=== PATIENT | female | born 1955 | race Caucasian/White ===

== ENCOUNTER 2019-06-30 10:28 | Inpatient (IN) ==
[2019-06-30] MEDS ORDERED: 0.9 % Sodium Chloride 1,000 ML IVC ONE (10:54)
[2019-06-30 11:14] LABS: Basophils % 0.1 %; Eosinophils # 0.1 K/mcL (0.0-0.6); Eosinophils % 0.9 %; Hematocrit 31.7 % (35.3-44.9); Hemoglobin 11.2 g/dL (11.5-15.4); Immature Granulocytes % 0.4 % (0-4); Lymphocytes # 1.7 K/mcL (0.6-4.6); Lymphocytes % 18.7 %; Mean Corpuscular HGB Conc 35.3 g/dL (31.6-35.5); Mean Corpuscular Hemoglobin 33.9 pg (28.0-33.3); Mean Corpuscular Volume 96.1 fL (83.0-100.0); Mean Platelet Volume 9.2 fL (9.4-12.4); Monocytes # 0.6 K/mcL (0.0-1.3); Monocytes % 6.9 %; Neutrophils # 6.6 K/mcL (1.6-8.9); Platelet Count 388 K/mcL (140-400); Red Cell Distribution Width 19.2 % (11.5-14.5)
[2019-06-30 11:27] LABS: INR 1.1
[2019-06-30 11:30] LABS: Activated Partial Thrombo Time 28.3 Seconds (26.0-36.0)
[2019-06-30 11:34] LABS: BUN/Creatinine Ratio 17 (6-26); Blood Urea Nitrogen 8 mg/dL (8-23); Calcium 8.5 mg/dL (8.6-10.3); Carbon Dioxide 29 mEq/L (23-29); Chloride 95 mEq/L (98-107); Glucose 78 mg/dL (70-105); Osmolality,Calculated 273 (280-300); Potassium 3.1 mEq/L (3.5-5.1); Sodium 133 mEq/L (136-145); eGFR For African Americans > 60 (> 60); eGFR For Non-African Americans > 60 (> 60)
[2019-06-30 11:35] LABS: Troponin I < 0.03 ng/mL (< 0.04)
[2019-06-30] MEDS ORDERED: Isovue-370 500 ML BOTTLE IVP ONE (12:49)
[2019-06-30] MEDS ORDERED: *HR* HYDROmorphone (PF) 1 MG/ML SYRINGE IVP ONE (13:44)
[2019-06-30] MEDS ORDERED: Azithromycin 500 MG in 0.9 % Sodium Chloride 250 ML IVPB ONE (15:42)
[2019-06-30] MEDS ORDERED: Piperacillin/Tazobactam 3.375 GM in 0.9 % Sodium Chloride Mini Bag 100 ML IVPB ONE (15:42)
[2019-06-30] MEDS ORDERED: Ipratropium/Albuterol Neb 3 ML IH ONE (15:57)
[2019-06-30] MEDS ORDERED: Naloxone 0.4 MG/ML INJ IVP PRN (16:27)
[2019-06-30] MEDS: *HR* Heparin 5,000 UNIT/ML VIAL SQ SCH (21:07)
[2019-06-30] MEDS ORDERED: Acetaminophen IV 500 MG/50 ML INFUS..BTL IVPB ONE (21:58)
[2019-06-30] MEDS: Ipratropium/Albuterol Neb 3 ML IH PRN (22:09)
[2019-07-01 01:12] LABS: Basophils % 0.1 %; Eosinophils # 0.1 K/mcL (0.0-0.6); Eosinophils % 0.9 %; Hemoglobin 9.7 g/dL (11.5-15.4); Immature Granulocytes % 0.2 % (0-4); Lymphocytes # 1.3 K/mcL (0.6-4.6); Lymphocytes % 14.7 %; Mean Corpuscular HGB Conc 34.6 g/dL (31.6-35.5); Mean Corpuscular Hemoglobin 33.6 pg (28.0-33.3); Mean Corpuscular Volume 96.9 fL (83.0-100.0); Mean Platelet Volume 9.2 fL (9.4-12.4); Monocytes # 0.6 K/mcL (0.0-1.3); Monocytes % 6.2 %; Neutrophils # 6.9 K/mcL (1.6-8.9); Platelet Count 329 K/mcL (140-400); Red Blood Count 2.89 M/mcL (3.82-4.97); Red Cell Distribution Width 17.9 % (11.5-14.5); Segmented Neutrophils % 77.9 %; White Blood Count 8.8 K/mcL (4.3-11.1)
[2019-07-01 01:31] LABS: BUN/Creatinine Ratio 14 (6-26); Blood Urea Nitrogen 5 mg/dL (8-23); Calcium 8.1 mg/dL (8.6-10.3); Carbon Dioxide 30 mEq/L (23-29); Chloride 98 mEq/L (98-107); Glucose 95 mg/dL (70-105); Osmolality,Calculated 279 (280-300); Sodium 136 mEq/L (136-145); eGFR For African Americans > 60 (> 60); eGFR For Non-African Americans > 60 (> 60)
[2019-07-01] MEDS: *HR* Heparin 5,000 UNIT/ML VIAL SQ SCH ×3 (05:26→20:13)
[2019-07-01] MEDS ORDERED: *HR* OxyCODONE/APAP 5/325 TABLET PO ONE (05:46)
[2019-07-01] MEDS ORDERED: Piperacillin/Tazobactam 3.375 GM in 0.9 % Sodium Chloride Mini Bag 100 ML IVPB SCH ×2 (06:00→13:45)
[2019-07-01] MEDS: Ipratropium/Albuterol Neb 3 ML IH PRN ×2 (10:21→21:17)
[2019-07-01] MEDS ORDERED: hydrOXYzine pamoate 25 MG CAPSULE PO PRN (10:40)
[2019-07-01] MEDS ORDERED: tiZANidine 4 MG TABLET PO PRN (10:40)
[2019-07-01] MEDS: *HR* OxyCODONE/APAP 10/325 TABLET PO PRN ×2 (12:20→19:21)
[2019-07-01] MEDS: Simethicone 80 MG TAB.CHEW PO SCH ×3 (15:17→20:13)
[2019-07-01] MEDS: Piperacillin/Tazobactam 3.375 GM in 0.9 % Sodium Chloride Mini Bag 100 ML IVPB SCH (15:27)
[2019-07-01] MEDS: Gabapentin 400 MG CAPSULE PO SCH ×2 (15:27→20:12)
[2019-07-01] MEDS: Budesonide/Formoterol 160/4.5 1 PUFF INH IH SCH (20:22)
[2019-07-01] MEDS ORDERED: NON-FORMULARY MEDICATION 1 EACH EACH (Oxygen 2 L) NS SCH (21:00)
[2019-07-02] MEDS: Piperacillin/Tazobactam 3.375 GM in 0.9 % Sodium Chloride Mini Bag 100 ML IVPB SCH ×2 (00:28→08:31)
[2019-07-02] MEDS: *HR* Heparin 5,000 UNIT/ML VIAL SQ SCH (06:14)
[2019-07-02] MEDS: *HR* OxyCODONE/APAP 10/325 TABLET PO PRN (06:17)
[2019-07-02 06:35] VITALS: BP 108/63
[2019-07-02 07:01] LABS: Basophils % 0.2 %; Eosinophils # 0.1 K/mcL (0.0-0.6); Eosinophils % 1.7 %; Hematocrit 28.9 % (35.3-44.9); Hemoglobin 10.2 g/dL (11.5-15.4); Immature Granulocytes % 0.3 % (0-4); Lymphocytes # 1.3 K/mcL (0.6-4.6); Lymphocytes % 19.1 %; Mean Corpuscular HGB Conc 35.3 g/dL (31.6-35.5); Mean Corpuscular Hemoglobin 33.6 pg (28.0-33.3); Mean Corpuscular Volume 95.1 fL (83.0-100.0); Mean Platelet Volume 9.2 fL (9.4-12.4); Monocytes # 0.5 K/mcL (0.0-1.3); Monocytes % 7.6 %; Neutrophils # 4.7 K/mcL (1.6-8.9); Platelet Count 373 K/mcL (140-400); Red Blood Count 3.04 M/mcL (3.82-4.97); Segmented Neutrophils % 71.1 %; White Blood Count 6.6 K/mcL (4.3-11.1)
[2019-07-02 07:20] LABS: BUN/Creatinine Ratio 17 (6-26); Blood Urea Nitrogen 7 mg/dL (8-23); Calcium 8.2 mg/dL (8.6-10.3); Carbon Dioxide 33 mEq/L (23-29); Chloride 96 mEq/L (98-107); Glucose 87 mg/dL (70-105); Osmolality,Calculated 281 (280-300); Potassium 3.2 mEq/L (3.5-5.1); Sodium 137 mEq/L (136-145); eGFR For African Americans > 60 (> 60); eGFR For Non-African Americans > 60 (> 60)
[2019-07-02] MEDS: Gabapentin 400 MG CAPSULE PO SCH (08:30)
[2019-07-02] MEDS: Simethicone 80 MG TAB.CHEW PO SCH (08:30)
[2019-07-02] MEDS ORDERED: Lubiprostone [Amitiza] 24 MCG PO SCH (09:00)
[2019-07-02] MEDS ORDERED: Roflumilast [Daliresp] 500 MCG PO SCH (09:00)
[2019-07-02] MEDS ORDERED: Aspirin 81 MG TAB.CHEW PO SCH (09:00)
[2019-07-02] MEDS ORDERED: Cholecalciferol (D-3) 1,000 UNIT (25MCG) TABLET PO SCH (09:00)
[2019-07-02] MEDS ORDERED: amLODIPine 5 MG TABLET PO SCH (09:00)
[2019-07-02] MEDS ORDERED: Loratadine 10 MG TABLET PO SCH (09:00)
[2019-07-02] MEDS ORDERED: Tiotropium 18 MCG inhalation IH SCH (10:00)
[2019-07-02] MEDS: Budesonide/Formoterol 160/4.5 1 PUFF INH IH SCH (10:53)
== END 2019-07-02 13:16 | disposition home or self-care (01) | DRG 194 ==
LOC: 3BNU 10:28 → EMEROOARM 10:28 → SUATTDRO 16:37 → OBSVTOIN 16:37 → 3BNU 17:20
PROVIDERS: ADMIT Internal Medicine; ATTEND Internal Medicine

== ENCOUNTER 2019-10-05 17:15 | Observation (INO) ==
[2019-10-05] MEDS ORDERED: Isovue-370 500 ML BOTTLE IVP ONE (17:43)
[2019-10-05 18:08] LABS: Basophils % 0.5 %; Eosinophils # 0.2 K/mcL (0.0-0.6); Eosinophils % 2.6 %; Hematocrit 43.3 % (35.3-44.9); Hemoglobin 14.7 g/dL (11.5-15.4); Immature Granulocytes % 0.2 % (0-4); Lymphocytes % 33.6 %; Mean Corpuscular HGB Conc 33.9 g/dL (31.6-35.5); Mean Corpuscular Hemoglobin 32.7 pg (28.0-33.3); Mean Corpuscular Volume 96.4 fL (83.0-100.0); Mean Platelet Volume 9.6 fL (9.4-12.4); Monocytes # 0.5 K/mcL (0.0-1.3); Monocytes % 7.6 %; Neutrophils # 3.4 K/mcL (1.6-8.9); Platelet Count 285 K/mcL (140-400); Red Blood Count 4.49 M/mcL (3.82-4.97); Red Cell Distribution Width 14.7 % (11.5-14.5); Segmented Neutrophils % 55.5 %; White Blood Count 6.1 K/mcL (4.3-11.1)
[2019-10-05 18:25] LABS: BUN/Creatinine Ratio 18 (6-26); Blood Urea Nitrogen 10 mg/dL (8-23); Calcium 9.3 mg/dL (8.6-10.3); Carbon Dioxide 29 mEq/L (23-29); Chloride 104 mEq/L (98-107); Glucose 105 mg/dL (70-105); Osmolality,Calculated 289 (280-300); Potassium 3.6 mEq/L (3.5-5.1); Sodium 140 mEq/L (136-145); Troponin I < 0.03 ng/mL (< 0.04); eGFR For African Americans > 60 (> 60); eGFR For Non-African Americans > 60 (> 60)
[2019-10-05] MEDS ORDERED: Naloxone 0.4 MG/ML INJ IVP PRN (20:23)
[2019-10-05] MEDS ORDERED: *HR* Metoprolol 5 MG/5 ML VIAL IVP PRN (20:26)
[2019-10-05] MEDS ORDERED: Levalbuterol Neb 1.25 MG/3 ML IH PRN (20:28)
[2019-10-05 20:35] LABS: Prothrombin Time 11.8 Seconds (9.4-12.1)
[2019-10-05] MEDS: 0.9 % Sodium Chloride 1,000 ML IVC SCH (20:46)
[2019-10-05] MEDS ORDERED: tiZANidine 4 MG TABLET PO PRN (21:04)
[2019-10-05] MEDS ORDERED: NON-FORMULARY MEDICATION 1 EACH EACH (Fluticasone/Umeclidin/Vilanter [Trelegy Ellipta 100- IH PRN (21:04)
[2019-10-05] MEDS: predniSONE 20 MG TABLET PO SCH (21:34)
[2019-10-05] MEDS: Levalbuterol Neb 1.25 MG/3 ML IH SCH ×2 (22:24→23:10)
[2019-10-06] MEDS: *HR* OxyCODONE/APAP 10/325 TABLET PO PRN ×3 (00:29→18:15)
[2019-10-06] MEDS: Levalbuterol Neb 1.25 MG/3 ML IH SCH ×5 (03:16→20:26)
[2019-10-06 03:53] LABS: Basophils % 0.1 %; Eosinophils % 0.1 %; Hematocrit 41.8 % (35.3-44.9); Hemoglobin 13.7 g/dL (11.5-15.4); Immature Granulocytes % 0.1 % (0-4); Lymphocytes % 14.8 %; Mean Corpuscular HGB Conc 32.8 g/dL (31.6-35.5); Mean Corpuscular Hemoglobin 33.1 pg (28.0-33.3); Mean Platelet Volume 9.8 fL (9.4-12.4); Monocytes # 0.1 K/mcL (0.0-1.3); Monocytes % 0.9 %; Neutrophils # 5.7 K/mcL (1.6-8.9); Platelet Count 255 K/mcL (140-400); Red Blood Count 4.14 M/mcL (3.82-4.97); Red Cell Distribution Width 14.4 % (11.5-14.5); White Blood Count 6.8 K/mcL (4.3-11.1)
[2019-10-06 04:13] LABS: BUN/Creatinine Ratio 15 (6-26); Blood Urea Nitrogen 9 mg/dL (8-23); Calcium 9.2 mg/dL (8.6-10.3); Carbon Dioxide 28 mEq/L (23-29); Chloride 105 mEq/L (98-107); Glucose 146 mg/dL (70-105); Osmolality,Calculated 293 (280-300); Potassium 4.2 mEq/L (3.5-5.1); Sodium 141 mEq/L (136-145); eGFR For African Americans > 60 (> 60); eGFR For Non-African Americans > 60 (> 60)
[2019-10-06] MEDS: *HR* OxyCODONE Immed Rel 5 MG TABLET PO PRN ×3 (05:29→16:14)
[2019-10-06] MEDS: Pyridoxine (B-6) 50 MG TABLET PO SCH (08:02)
[2019-10-06] MEDS: Simethicone 80 MG TAB.CHEW PO SCH ×4 (08:04→20:39)
[2019-10-06] MEDS: Loratadine 10 MG TABLET PO SCH (08:04)
[2019-10-06] MEDS: Cholecalciferol (D-3) 1,000 UNIT (25MCG) TABLET PO SCH (08:04)
[2019-10-06] MEDS: Gabapentin 400 MG CAPSULE PO SCH ×3 (08:04→20:39)
[2019-10-06] MEDS: predniSONE 20 MG TABLET PO SCH (08:04)
[2019-10-06] MEDS: 0.9 % Sodium Chloride 1,000 ML IVC SCH (08:13)
[2019-10-06] MEDS ORDERED: LUBIPROSTONE 24 MCG PO SCH (09:00)
[2019-10-06] MEDS ORDERED: DALIRESP 500 MCG PO SCH (09:00)
[2019-10-06] MEDS ORDERED: AMITIZA 24MCG PO SCH (09:00)
[2019-10-06] MEDS ORDERED: Budesonide/Formoterol 160/4.5 1 PUFF INH IH SCH (10:00)
[2019-10-06] MEDS ORDERED: Acetaminophen IV 1,000 MG/100 ML INFUS..BTL IVPB ONE (11:00)
[2019-10-06] MEDS ORDERED: Albuterol 2.5 MG/3 ML NEBULIZER IH ONE (11:00)
[2019-10-06] MEDS ORDERED: Ondansetron 4 MG/2 ML VIAL ONE (11:08)
[2019-10-06] MEDS ORDERED: Lidocaine -MPF 2% 2 ML VIAL ONE (11:08)
[2019-10-06] MEDS ORDERED: *HR* FentaNYL (PF) 100 MCG/2 ML VIAL ONE (11:08)
[2019-10-06] MEDS ORDERED: Dexamethasone 4 MG/ML VIAL ONE (11:08)
[2019-10-06] MEDS ORDERED: *HR* Propofol 200 MG/20 ML VIAL IVP ONE ×2 (11:09→11:10)
[2019-10-06] MEDS ORDERED: *HR* Midazolam HCl 2 MG/2 ML VIAL ONE (11:09)
[2019-10-06] MEDS ORDERED: Lidocaine -MPF 4% 5 ML AMPUL ONE (11:14)
[2019-10-06] MEDS ORDERED: *HR* EPINEPHrine 1 MG/10 ML SYRINGE INTRATRACH PRN (11:51)
[2019-10-06] MEDS: Azithromycin 250 MG TABLET PO SCH (14:10)
[2019-10-06] MEDS: Budesonide/Formoterol 160/4.5 1 PUFF INH IH SCH (20:28)
[2019-10-07] MEDS: Levalbuterol Neb 1.25 MG/3 ML IH SCH ×6 (00:13→19:40)
[2019-10-07] MEDS: *HR* OxyCODONE/APAP 10/325 TABLET PO PRN ×3 (01:13→18:00)
[2019-10-07] MEDS: *HR* OxyCODONE Immed Rel 5 MG TABLET PO PRN ×3 (05:36→20:00)
[2019-10-07] MEDS ORDERED: Ondansetron ODT 4 MG TAB.RAPDIS PO PRN (07:41)
[2019-10-07] MEDS: Budesonide/Formoterol 160/4.5 1 PUFF INH IH SCH ×2 (07:49→19:43)
[2019-10-07] MEDS: Azithromycin 250 MG TABLET PO SCH (09:20)
[2019-10-07] MEDS: Simethicone 80 MG TAB.CHEW PO SCH ×4 (09:21→20:00)
[2019-10-07] MEDS: Gabapentin 400 MG CAPSULE PO SCH ×3 (09:21→20:00)
[2019-10-07] MEDS: Loratadine 10 MG TABLET PO SCH (09:21)
[2019-10-07] MEDS: Pyridoxine (B-6) 50 MG TABLET PO SCH (09:22)
[2019-10-07] MEDS: Cholecalciferol (D-3) 1,000 UNIT (25MCG) TABLET PO SCH (09:22)
[2019-10-07] MEDS: methylPREDNISolone 125 MG/2 ML VIAL IVP SCH ×2 (09:26→18:00)
[2019-10-07] MEDS: 0.9 % Sodium Chloride 1,000 ML IVC SCH (19:26)
[2019-10-08] MEDS: Levalbuterol Neb 1.25 MG/3 ML IH SCH ×3 (00:09→07:26)
[2019-10-08] MEDS: *HR* OxyCODONE/APAP 10/325 TABLET PO PRN ×2 (00:11→08:34)
[2019-10-08] MEDS: methylPREDNISolone 125 MG/2 ML VIAL IVP SCH (05:46)
[2019-10-08] MEDS: *HR* OxyCODONE Immed Rel 5 MG TABLET PO PRN (05:47)
[2019-10-08 06:43] LABS: Basophils % 0.2 %; Hematocrit 36.9 % (35.3-44.9); Hemoglobin 12.6 g/dL (11.5-15.4); Immature Granulocytes % 0.5 % (0-4); Lymphocytes # 1.7 K/mcL (0.6-4.6); Lymphocytes % 26.8 %; Mean Corpuscular HGB Conc 34.1 g/dL (31.6-35.5); Mean Corpuscular Hemoglobin 32.9 pg (28.0-33.3); Mean Corpuscular Volume 96.3 fL (83.0-100.0); Mean Platelet Volume 9.9 fL (9.4-12.4); Monocytes # 0.4 K/mcL (0.0-1.3); Monocytes % 5.8 %; Neutrophils # 4.3 K/mcL (1.6-8.9); Platelet Count 233 K/mcL (140-400); Red Blood Count 3.83 M/mcL (3.82-4.97); Red Cell Distribution Width 14.6 % (11.5-14.5); Segmented Neutrophils % 66.7 %; White Blood Count 6.4 K/mcL (4.3-11.1)
[2019-10-08 07:06] LABS: BUN/Creatinine Ratio 33 (6-26); Blood Urea Nitrogen 17 mg/dL (8-23); Calcium 9.3 mg/dL (8.6-10.3); Carbon Dioxide 29 mEq/L (23-29); Chloride 104 mEq/L (98-107); Glucose 115 mg/dL (70-105); Osmolality,Calculated 292 (280-300); Potassium 3.9 mEq/L (3.5-5.1); Sodium 140 mEq/L (136-145); eGFR For African Americans > 60 (> 60); eGFR For Non-African Americans > 60 (> 60)
[2019-10-08 07:10] VITALS: BP 131/72
[2019-10-08] MEDS: Budesonide/Formoterol 160/4.5 1 PUFF INH IH SCH (07:27)
[2019-10-08] MEDS: Cholecalciferol (D-3) 1,000 UNIT (25MCG) TABLET PO SCH (08:34)
[2019-10-08] MEDS: Loratadine 10 MG TABLET PO SCH (08:34)
[2019-10-08] MEDS: Azithromycin 250 MG TABLET PO SCH (08:34)
[2019-10-08] MEDS: Gabapentin 400 MG CAPSULE PO SCH (08:34)
[2019-10-08] MEDS: Simethicone 80 MG TAB.CHEW PO SCH (08:34)
[2019-10-08] MEDS: Pyridoxine (B-6) 50 MG TABLET PO SCH (08:35)
[2019-10-09 04:49] LABS: Influenza A PCR Body Fluid NOT DETECTED; Influenza B PCR Body Fluid NOT DETECTED; RVP Body Fluid Source BAL
[2019-10-09 07:55] LABS: Influenza A PCR Body Fluid NOT DETECTED; Influenza B PCR Body Fluid NOT DETECTED; RVP Body Fluid Source BAL
[2019-10-09 08:00] LABS: RSV PCR Body Fluid NOT DETECTED
== END 2019-10-08 11:18 | disposition home or self-care (01) ==
LOC: EMEROOARM 17:15 → 3ANU 17:15 → 2ANU 10-06 14:47
PROVIDERS: ADMIT Family Medicine; ATTEND Family Medicine

== ENCOUNTER 2020-03-19 23:46 | Observation (INO) ==
[2020-03-20] MEDS ORDERED: Isovue-370 500 ML BOTTLE IVP ONE (00:52)
[2020-03-20 01:23] LABS: Basophils % 0.3 %; Eosinophils # 0.4 K/mcL (0.0-0.6); Eosinophils % 5.7 %; Hematocrit 42.5 % (35.3-44.9); Hemoglobin 14.1 g/dL (11.5-15.4); Immature Granulocytes % 0.1 % (0-4); Lymphocytes % 14.1 %; Mean Corpuscular HGB Conc 33.2 g/dL (31.6-35.5); Mean Corpuscular Volume 96.6 fL (83.0-100.0); Monocytes # 0.5 K/mcL (0.0-1.3); Monocytes % 7.9 %; Neutrophils # 4.9 K/mcL (1.6-8.9); Platelet Count 314 K/mcL (140-400); Red Cell Distribution Width 12.8 % (11.5-14.5); Segmented Neutrophils % 71.9 %; White Blood Count 6.8 K/mcL (4.3-11.1)
[2020-03-20 01:24] LABS: Prothrombin Time 11.7 Seconds (9.4-12.1)
[2020-03-20 01:26] LABS: Activated Partial Thrombo Time 33.4 Seconds (26.0-36.0)
[2020-03-20 01:31] LABS: Alanine Aminotransferase 17 Units/L (7-52); Albumin 3.4 g/dL (3.5-5.7); Albumin/Globulin Ratio 1.1 (1.1-2.2); Alkaline Phosphatase 126 Units/L (34-104); Aspartate Amino Transferase 20 Units/L (13-39); BUN/Creatinine Ratio 17 (6-26); Bilirubin,Direct 0.2 mg/dL (0.0-0.2); Bilirubin,Indirect 0.1 mg/dL (0.0-1.0); Bilirubin,Total 0.3 mg/dL (0.3-1.0); Blood Urea Nitrogen 10 mg/dL (8-23); Carbon Dioxide 27 mEq/L (23-29); Chloride 103 mEq/L (98-107); Globulin 3.1 g/dL (2.4-3.5); Glucose 100 mg/dL (70-105); Osmolality,Calculated 283 (280-300); Potassium 3.6 mEq/L (3.5-5.1); Sodium 137 mEq/L (136-145); Total Protein 6.5 g/dL (6.4-8.9); Troponin I < 0.03 ng/mL (< 0.04); eGFR For African Americans > 60 (> 60); eGFR For Non-African Americans > 60 (> 60)
[2020-03-20 03:11] LABS: Bilirubin,Urine Negative (Negative); Blood,Urine Small (Negative); Clarity,Urine Clear (Clear); Color,Urine Light-Yellow (Yellow); Glucose,Urine (UA) Normal (Normal); Ketones,Urine Negative (Negative); Leukocyte Esterase,Urine Negative (Negative); Mucus,Urine Few per lpf (None-Few); Nitrite,Urine Negative (Negative); PH,Urine 6.5 pH Units (5.0-8.0); Protein,Urine Trace mg/dL (Neg-Trace); Specific Gravity,Urine 1.009 (1.010-1.025); Squamous Epithelial Cell,Urine Few per hpf (None-Few); Urobilinogen,Urine Normal (Normal); WBC,Urine 0-3 per hpf (0-3)
[2020-03-20] MEDS ORDERED: Albuterol 2.5 MG/3 ML NEBULIZER IH ONE (04:12)
[2020-03-20] MEDS ORDERED: Naloxone 0.4 MG/ML INJ IVP PRN (06:54)
[2020-03-20] MEDS: Albuterol 2.5 MG/3 ML NEBULIZER IH PRN ×2 (08:19→13:01)
[2020-03-20] MEDS: Levalbuterol Neb 0.63 MG/3 ML IH SCH ×3 (10:50→22:17)
[2020-03-20] MEDS ORDERED: Lidocaine -MPF 4% 5 ML AMPUL ONE (11:33)
[2020-03-20] MEDS ORDERED: Dexamethasone 4 MG/ML VIAL ONE (11:33)
[2020-03-20] MEDS ORDERED: Lidocaine -MPF 2% 2 ML VIAL ONE (11:33)
[2020-03-20] MEDS ORDERED: Ondansetron 4 MG/2 ML VIAL ONE (11:33)
[2020-03-20] MEDS: predniSONE 20 MG TABLET PO SCH (15:49)
[2020-03-20] MEDS ORDERED: Acetaminophen 325 MG TABLET PO PRN (16:11)
[2020-03-20] MEDS ORDERED: tiZANidine 4 MG TABLET PO PRN (16:13)
[2020-03-20] MEDS ORDERED: *HR* OxyCODONE/APAP 10/325 TABLET PO PRN (16:13)
[2020-03-20] MEDS: Doxycycline 100 MG CAPSULE PO SCH (16:40)
[2020-03-20] MEDS: Acetaminophen 325 MG TABLET PO PRN (16:40)
[2020-03-20] MEDS: Gabapentin 300 MG CAPSULE PO SCH (16:41)
[2020-03-20] MEDS ORDERED: Doxycycline 100 MG in 0.9 % Sodium Chloride Mini Bag 100 ML IVPB SCH (18:00)
[2020-03-20 18:47] LABS: Appearance of Body Fluid Cloudy (Clear); Volume of Body Fluid 15 mL
[2020-03-20 18:55] LABS: Appearance of Body Fluid Hazy (Clear); Volume of Body Fluid 15 mL
[2020-03-20] MEDS ORDERED: Gabapentin 300 MG CAPSULE PO SCH (21:00)
[2020-03-21] MEDS: Acetaminophen 325 MG TABLET PO PRN (00:20)
[2020-03-21] MEDS: Levalbuterol Neb 0.63 MG/3 ML IH SCH ×2 (03:20→09:20)
[2020-03-21] MEDS: Doxycycline 100 MG CAPSULE PO SCH (05:03)
[2020-03-21 07:12] VITALS: BP 119/76
[2020-03-21] MEDS ORDERED: Loratadine 10 MG TABLET PO SCH (09:00)
[2020-03-21] MEDS: Gabapentin 300 MG CAPSULE PO SCH (10:54)
[2020-03-21] MEDS: predniSONE 20 MG TABLET PO SCH (10:54)
== END 2020-03-21 12:20 | disposition home or self-care (01) ==
LOC: 2ANU 23:46 → EMEROOARM 23:46 → SUATTDRO 03-20 08:36 → 2ANU 03-20 09:30
PROVIDERS: ADMIT Internal Medicine; ATTEND Internal Medicine
PROC: ENDOBRF (2020-03-20 12:10)

== ENCOUNTER 2020-05-17 18:55 | Inpatient (IN) ==
[2020-05-17] MEDS ORDERED: methylPREDNISolone 125 MG/2 ML VIAL IVP ONE (19:19)
[2020-05-17] MEDS ORDERED: Albuterol 2.5 MG/3 ML NEBULIZER IH ONE (19:21)
[2020-05-17 19:31] LABS: Hematocrit 48.3 % (35.3-44.9); Hemoglobin 15.2 g/dL (11.5-15.4); Mean Corpuscular HGB Conc 31.5 g/dL (31.6-35.5); Mean Corpuscular Hemoglobin 30.4 pg (28.0-33.3); Mean Corpuscular Volume 96.6 fL (83.0-100.0); Mean Platelet Volume 9.7 fL (9.4-12.4); Nucleated Red Blood Cells 0.1 /100 WBC (0); Platelet Count 267 K/mcL (140-400); Red Cell Distribution Width 13.9 % (11.5-14.5); White Blood Count 19.9 K/mcL (4.3-11.1)
[2020-05-17 19:35] LABS: VBG HCO3 32 mEq/L (21-27); VBG PCO2 58 mmHg (41-51); VBG PH 7.35 pH Units (7.32-7.42); VBG PO2 41 mmHg (25-50)
[2020-05-17 19:39] LABS: INR 1.1; Prothrombin Time 12.4 Seconds (9.4-12.1)
[2020-05-17 19:41] LABS: Activated Partial Thrombo Time 32.2 Seconds (26.0-36.0)
[2020-05-17 19:50] LABS: Alanine Aminotransferase 14 Units/L (7-52); Albumin 3.5 g/dL (3.5-5.7); Alkaline Phosphatase 144 Units/L (34-104); Aspartate Amino Transferase 16 Units/L (13-39); BUN/Creatinine Ratio 16 (6-26); Bilirubin,Indirect 0.3 mg/dL (0.0-1.0); Bilirubin,Total 0.3 mg/dL (0.3-1.0); Blood Urea Nitrogen 9 mg/dL (8-23); Calcium 9.3 mg/dL (8.6-10.3); Carbon Dioxide 28 mEq/L (23-29); Chloride 98 mEq/L (98-107); Globulin 3.5 g/dL (2.4-3.5); Glucose 108 mg/dL (70-105); Osmolality,Calculated 281 (280-300); Sodium 136 mEq/L (136-145); eGFR For African Americans > 60 (> 60); eGFR For Non-African Americans > 60 (> 60)
[2020-05-17 20:07] LABS: Troponin I 0.08 ng/mL (< 0.04)
[2020-05-17 20:16] LABS: Eosinophils # 0.2 K/mcL (0.0-0.6); Lymphocytes # 1.4 K/mcL (0.6-4.6); Monocytes # 1.4 K/mcL (0.0-1.3); Neutrophils # 16.9 K/mcL (1.6-8.9)
[2020-05-17 20:17] LABS: Platelet Estimate Normal (Normal); Toxic Vacuolation Present (Not Present)
[2020-05-17] MEDS ORDERED: *HR* OxyCODONE/APAP 10/325 TABLET PO STA (20:19)
[2020-05-17] MEDS ORDERED: Piperacillin/Tazobactam 3.375 GM in 0.9 % Sodium Chloride Mini Bag 100 ML IVPB ONE (20:30)
[2020-05-17] MEDS ORDERED: Vancomycin 1,500 MG/265 ML IV.SOLN IVPB ONE (20:30)
[2020-05-17] MEDS ORDERED: 0.9 % Sodium Chloride 1,000 ML IVC ONE (20:30)
[2020-05-17] MEDS ORDERED: Isovue-370 500 ML BOTTLE IVP ONE ×2 (21:39→22:55)
[2020-05-17] MEDS ORDERED: Acetaminophen 325 MG TABLET PO PRN (22:04)
[2020-05-17] MEDS ORDERED: Naloxone 0.4 MG/ML INJ IVP PRN (22:04)
[2020-05-17] MEDS ORDERED: Ondansetron 4 MG/2 ML VIAL IVP PRN (22:04)
[2020-05-17 22:11] LABS: Adenovirus Not Detected (Not Detect); Coronavirus 229E Not Detected (Not Detect); Coronavirus HKU1 Not Detected (Not Detect); Coronavirus NL63 Not Detected (Not Detect); Coronavirus OC43 Not Detected (Not Detect); Human Metapneumovirus Not Detected (Not Detect); Human Rhinovirus/Enterovirus Not Detected (Not Detect); Influenza A Subtype 2009 H1 Not Detected (Not Detect); Influenza B Not Detected (Not Detect); Parainfluenza Virus 1 Not Detected (Not Detect); Parainfluenza Virus 2 Not Detected (Not Detect); Parainfluenza Virus 3 Not Detected (Not Detect); SARS-CoV-2 Not Detected (Not Detect)
[2020-05-17 22:12] LABS: Bordetella Pertussis Not Detected (Not Detect); Chlamydophila pneumoniae Not Detected (Not Detect); Mycoplasma pneumoniae Not Detected (Not Detect); Parainfluenza Virus 4 Not Detected (Not Detect); Respiratory Syncytial Virus Not Detected (Not Detect)
[2020-05-17] MEDS: Levalbuterol Neb 1.25 MG/3 ML IH SCH (23:11)
[2020-05-17] MEDS: Ipratropium Neb 0.5 MG NEBULIZER IH SCH (23:11)
[2020-05-18 01:01] LABS: Basophils # 0.1 K/mcL (0.0-0.2); Basophils % 0.6 %; Eosinophils % 0.1 %; Hematocrit 43.6 % (35.3-44.9); Hemoglobin 13.8 g/dL (11.5-15.4); Immature Granulocytes % 4.5 % (0-4); Lymphocytes # 0.4 K/mcL (0.6-4.6); Lymphocytes % 1.6 %; Mean Corpuscular HGB Conc 31.7 g/dL (31.6-35.5); Mean Corpuscular Hemoglobin 31.2 pg (28.0-33.3); Mean Corpuscular Volume 98.6 fL (83.0-100.0); Mean Platelet Volume 9.9 fL (9.4-12.4); Monocytes # 0.3 K/mcL (0.0-1.3); Monocytes % 1.4 %; Neutrophils # 21.2 K/mcL (1.6-8.9); Platelet Count 224 K/mcL (140-400); Red Blood Count 4.42 M/mcL (3.82-4.97); Red Cell Distribution Width 13.9 % (11.5-14.5); Segmented Neutrophils % 91.8 %; White Blood Count 23.1 K/mcL (4.3-11.1)
[2020-05-18 01:18] LABS: BUN/Creatinine Ratio 14 (6-26); Blood Urea Nitrogen 8 mg/dL (8-23); Calcium 8.6 mg/dL (8.6-10.3); Carbon Dioxide 29 mEq/L (23-29); Chloride 99 mEq/L (98-107); Glucose 168 mg/dL (70-105); Magnesium 1.5 mg/dL (1.6-2.6); Osmolality,Calculated 284 (280-300); Phosphorous 4.7 mg/dL (2.7-4.5); Potassium 4.4 mEq/L (3.5-5.1); Sodium 136 mEq/L (136-145); eGFR For African Americans > 60 (> 60); eGFR For Non-African Americans > 60 (> 60)
[2020-05-18] MEDS ORDERED: Nicotine 2 MG GUM BC PRN (01:23)
[2020-05-18] MEDS ORDERED: Perflutren Lipid Microsphere 1.3 ML in 0.9 % Sodium Chloride 8.7 ML IVP PRN (01:23)
[2020-05-18] MEDS: Ipratropium Neb 0.5 MG NEBULIZER IH SCH ×4 (04:21→21:31)
[2020-05-18] MEDS: Levalbuterol Neb 1.25 MG/3 ML IH SCH ×4 (04:21→21:31)
[2020-05-18] MEDS: *HR* Enoxaparin 30 MG/0.3 ML SYRINGE SQ SCH (05:22)
[2020-05-18] MEDS ORDERED: *HR* Heparin 5,000 UNIT/ML VIAL SQ SCH (06:00)
[2020-05-18] MEDS: Piperacillin/Tazobactam 3.375 GM in 0.9 % Sodium Chloride Mini Bag 100 ML IVPB SCH ×2 (09:13→16:51)
[2020-05-18] MEDS: Nicotine 14 MG PATCH.TD24 TD SCH (09:15)
[2020-05-18] MEDS: *HR* OxyCODONE/APAP 10/325 TABLET PO PRN ×2 (11:26→18:56)
[2020-05-18] MEDS: predniSONE 20 MG TABLET PO SCH (16:51)
[2020-05-18] MEDS ORDERED: Loratadine 10 MG TABLET PO PRN (18:25)
[2020-05-18] MEDS ORDERED: tiZANidine 4 MG TABLET PO PRN (18:35)
[2020-05-18] MEDS: Mirtazapine 15 MG TABLET PO SCH (20:21)
[2020-05-18] MEDS: Gabapentin 400 MG CAPSULE PO SCH (20:21)
[2020-05-18] MEDS: (Lubiprostone [Amitiza] 24 MCG) PO SCH (20:21)
[2020-05-18] MEDS: Budesonide/Formoterol 160/4.5 1 PUFF INH IH SCH (21:31)
[2020-05-19] MEDS: Piperacillin/Tazobactam 3.375 GM in 0.9 % Sodium Chloride Mini Bag 100 ML IVPB SCH ×4 (00:26→23:48)
[2020-05-19] MEDS: Benzonatate 100 MG CAPSULE PO PRN ×2 (01:57→20:07)
[2020-05-19] MEDS: *HR* OxyCODONE/APAP 10/325 TABLET PO PRN ×3 (01:59→20:08)
[2020-05-19] MEDS: Ipratropium Neb 0.5 MG NEBULIZER IH SCH ×4 (03:28→21:54)
[2020-05-19] MEDS: Levalbuterol Neb 1.25 MG/3 ML IH SCH ×4 (03:28→21:54)
[2020-05-19 04:15] LABS: Basophils % 0.4 %; Lymphocytes % 2.2 %; Mean Platelet Volume 9.8 fL (9.4-12.4); Monocytes % 3.7 %
[2020-05-19 04:16] LABS: Basophils # 0.1 K/mcL (0.0-0.2); Hematocrit 40.6 % (35.3-44.9); Hemoglobin 12.2 g/dL (11.5-15.4); Immature Granulocytes % 4.4 % (0-4); Lymphocytes # 0.7 K/mcL (0.6-4.6); Monocytes # 1.2 K/mcL (0.0-1.3); Platelet Count 238 K/mcL (140-400); Red Blood Count 4.06 M/mcL (3.82-4.97); Red Cell Distribution Width 13.9 % (11.5-14.5); Segmented Neutrophils % 89.3 %
[2020-05-19 04:19] LABS: Neutrophils # 27.8 K/mcL (1.6-8.9)
[2020-05-19 04:21] LABS: White Blood Count 31.1 K/mcL (4.3-11.1)
[2020-05-19 04:31] LABS: BUN/Creatinine Ratio 19 (6-26); Blood Urea Nitrogen 9 mg/dL (8-23); Calcium 8.6 mg/dL (8.6-10.3); Carbon Dioxide 37 mEq/L (23-29); Chloride 102 mEq/L (98-107); Glucose 122 mg/dL (70-105); Magnesium 1.7 mg/dL (1.6-2.6); Osmolality,Calculated 290 (280-300); Phosphorous 3.4 mg/dL (2.7-4.5); Potassium 4.3 mEq/L (3.5-5.1); Sodium 140 mEq/L (136-145); eGFR For African Americans > 60 (> 60); eGFR For Non-African Americans > 60 (> 60)
[2020-05-19] MEDS: *HR* Enoxaparin 30 MG/0.3 ML SYRINGE SQ SCH (05:05)
[2020-05-19 05:18] LABS: Platelet Estimate Normal (Normal); Toxic Vacuolation Present (Not Present)
[2020-05-19] MEDS: Gabapentin 400 MG CAPSULE PO SCH ×2 (09:16→20:06)
[2020-05-19] MEDS: Cholecalciferol (D-3) 1,000 UNIT (25MCG) TABLET PO SCH (09:16)
[2020-05-19] MEDS: Pyridoxine (B-6) 50 MG TABLET PO SCH (09:16)
[2020-05-19] MEDS: predniSONE 20 MG TABLET PO SCH (09:16)
[2020-05-19] MEDS: Aspirin 81 MG TAB.CHEW PO SCH (09:16)
[2020-05-19] MEDS: Nicotine 14 MG PATCH.TD24 TD SCH (09:19)
[2020-05-19] MEDS: (Lubiprostone [Amitiza] 24 MCG) PO SCH ×2 (09:19→20:07)
[2020-05-19] MEDS: (Roflumilast [Daliresp] 500 MCG) PO SCH (09:19)
[2020-05-19] MEDS: Budesonide/Formoterol 160/4.5 1 PUFF INH IH SCH ×2 (09:34→21:53)
[2020-05-19] MEDS ORDERED: methylPREDNISolone 125 MG/2 ML VIAL IVP ONE (09:42)
[2020-05-19] MEDS: polyethylene glycoL 3350 17 GM POWD.PACK PO SCH (11:21)
[2020-05-19] MEDS: Vancomycin 1,500 MG/265 ML IV.SOLN IVPB SCH ×2 (11:39→23:50)
[2020-05-19] MEDS: Ringers Solution, Lactated 1,000 ML IVC SCH (11:44)
[2020-05-19] MEDS: MethylPREDNISolone 40 MG/ML VIAL IVP SCH ×2 (16:21→23:47)
[2020-05-19] MEDS: Mirtazapine 15 MG TABLET PO SCH (20:08)
[2020-05-20 02:42] LABS: Hematocrit 42.7 % (35.3-44.9); Hemoglobin 13.2 g/dL (11.5-15.4); Mean Corpuscular HGB Conc 30.9 g/dL (31.6-35.5); Mean Corpuscular Hemoglobin 30.8 pg (28.0-33.3); Mean Corpuscular Volume 99.5 fL (83.0-100.0); Mean Platelet Volume 9.9 fL (9.4-12.4); Platelet Count 217 K/mcL (140-400); Red Blood Count 4.29 M/mcL (3.82-4.97); Red Cell Distribution Width 13.7 % (11.5-14.5)
[2020-05-20 03:01] LABS: BUN/Creatinine Ratio 26 (6-26); Blood Urea Nitrogen 9 mg/dL (8-23); Carbon Dioxide 36 mEq/L (23-29); Chloride 96 mEq/L (98-107); Glucose 116 mg/dL (70-105); Magnesium 1.7 mg/dL (1.6-2.6); Osmolality,Calculated 290 (280-300); Phosphorous 3.6 mg/dL (2.7-4.5); Sodium 140 mEq/L (136-145); eGFR For African Americans > 60 (> 60); eGFR For Non-African Americans > 60 (> 60)
[2020-05-20] MEDS: Levalbuterol Neb 1.25 MG/3 ML IH SCH ×4 (03:34→19:35)
[2020-05-20] MEDS: Ipratropium Neb 0.5 MG NEBULIZER IH SCH ×4 (03:34→19:35)
[2020-05-20] MEDS: *HR* Enoxaparin 30 MG/0.3 ML SYRINGE SQ SCH (05:27)
[2020-05-20] MEDS: Ringers Solution, Lactated 1,000 ML IVC SCH ×2 (05:28→21:39)
[2020-05-20] MEDS: Budesonide/Formoterol 160/4.5 1 PUFF INH IH SCH ×2 (08:42→19:35)
[2020-05-20] MEDS: Piperacillin/Tazobactam 3.375 GM in 0.9 % Sodium Chloride Mini Bag 100 ML IVPB SCH ×2 (09:27→16:03)
[2020-05-20] MEDS: MethylPREDNISolone 40 MG/ML VIAL IVP SCH ×2 (09:27→17:27)
[2020-05-20] MEDS: Pyridoxine (B-6) 50 MG TABLET PO SCH (09:28)
[2020-05-20] MEDS: polyethylene glycoL 3350 17 GM POWD.PACK PO SCH (09:28)
[2020-05-20] MEDS: Cholecalciferol (D-3) 1,000 UNIT (25MCG) TABLET PO SCH (09:29)
[2020-05-20] MEDS: Gabapentin 400 MG CAPSULE PO SCH ×2 (09:29→21:15)
[2020-05-20] MEDS: Aspirin 81 MG TAB.CHEW PO SCH (09:29)
[2020-05-20] MEDS: (Lubiprostone [Amitiza] 24 MCG) PO SCH ×2 (09:51→21:41)
[2020-05-20] MEDS: (Roflumilast [Daliresp] 500 MCG) PO SCH (09:51)
[2020-05-20] MEDS: Vancomycin 1,500 MG/265 ML IV.SOLN IVPB SCH (12:11)
[2020-05-20] MEDS: *HR* OxyCODONE/APAP 10/325 TABLET PO PRN ×2 (12:18→21:15)
[2020-05-20] MEDS: Mirtazapine 15 MG TABLET PO SCH (21:15)
[2020-05-20] MEDS: Benzonatate 100 MG CAPSULE PO PRN (21:39)
[2020-05-21] MEDS: Vancomycin 1,750 MG/517.5 ML IV.SOLN IVPB SCH ×2 (00:48→14:57)
[2020-05-21] MEDS: Piperacillin/Tazobactam 3.375 GM in 0.9 % Sodium Chloride Mini Bag 100 ML IVPB SCH ×2 (00:50→07:32)
[2020-05-21] MEDS: Levalbuterol Neb 1.25 MG/3 ML IH SCH ×3 (03:55→15:22)
[2020-05-21] MEDS: Ipratropium Neb 0.5 MG NEBULIZER IH SCH ×3 (03:55→15:22)
[2020-05-21] MEDS: MethylPREDNISolone 40 MG/ML VIAL IVP SCH (05:09)
[2020-05-21 05:35] LABS: Hematocrit 40.1 % (35.3-44.9); Hemoglobin 12.5 g/dL (11.5-15.4); Mean Corpuscular HGB Conc 31.2 g/dL (31.6-35.5); Mean Corpuscular Hemoglobin 30.9 pg (28.0-33.3); Mean Platelet Volume 9.9 fL (9.4-12.4); Platelet Count 221 K/mcL (140-400); Red Blood Count 4.05 M/mcL (3.82-4.97); Red Cell Distribution Width 13.4 % (11.5-14.5); White Blood Count 13.9 K/mcL (4.3-11.1)
[2020-05-21 05:58] LABS: BUN/Creatinine Ratio 26 (6-26); Blood Urea Nitrogen 11 mg/dL (8-23); Calcium 8.9 mg/dL (8.6-10.3); Carbon Dioxide 35 mEq/L (23-29); Chloride 100 mEq/L (98-107); Glucose 108 mg/dL (70-105); Magnesium 1.8 mg/dL (1.6-2.6); Osmolality,Calculated 292 (280-300); Phosphorous 3.4 mg/dL (2.7-4.5); Potassium 3.9 mEq/L (3.5-5.1); Sodium 141 mEq/L (136-145); eGFR For African Americans > 60 (> 60); eGFR For Non-African Americans > 60 (> 60)
[2020-05-21] MEDS ORDERED: *HR* Enoxaparin 40 MG/0.4 ML SYRINGE SQ SCH (06:00)
[2020-05-21] MEDS: Pyridoxine (B-6) 50 MG TABLET PO SCH (07:33)
[2020-05-21] MEDS: Aspirin 81 MG TAB.CHEW PO SCH (07:33)
[2020-05-21] MEDS: polyethylene glycoL 3350 17 GM POWD.PACK PO SCH (07:33)
[2020-05-21] MEDS: Gabapentin 400 MG CAPSULE PO SCH (07:33)
[2020-05-21] MEDS: Cholecalciferol (D-3) 1,000 UNIT (25MCG) TABLET PO SCH (07:33)
[2020-05-21] MEDS: (Lubiprostone [Amitiza] 24 MCG) PO SCH (07:34)
[2020-05-21] MEDS: (Roflumilast [Daliresp] 500 MCG) PO SCH (07:34)
[2020-05-21] MEDS: Budesonide/Formoterol 160/4.5 1 PUFF INH IH SCH (07:52)
[2020-05-21 11:13] VITALS: BP 141/92
[2020-05-22] MEDS ORDERED: predniSONE 20 MG TABLET PO SCH (09:00)
== END 2020-05-21 15:55 | disposition home health service (06) | DRG 871 ==
LOC: EMEROOARM 18:55 → 2ANU 18:55 → SUATTDRO 22:31 → 2ANU 23:07
PROVIDERS: ADMIT Family Medicine; ATTEND Internal Medicine